=== PATIENT | female | born 1940 | race Caucasian/White ===

== ENCOUNTER 2021-09-23 16:26 | Emergency (ER) | payer MEDICARE, BC ==
[~2021-09-23] VITALS: Ht 154.9 cm; Wt 69.8 kg
[~2021-09-23 16:26] MED LIST: ADULT LOW DOSE81 MG PO; CALCIUM600 MG PO; LEVOTHYROXINE75 MCG PO; LIPITOR40 MG PO; NEXIUM20 MG PO; VITAMIN D1000 UNI1 PO
[2021-09-23] MEDS ORDERED: OFEV150 MG PO (18:31)
[2021-09-23] MEDS ORDERED: DOXYCYCLINE HY100 MG PO (20:58)
== END 2021-09-23 21:41 | disposition home or self-care (01) ==
LOC: ED 16:26
DX: J40 Bronchitis, not specified as acute or chronic (principal); Z20.822 Contact with and (suspected) exposure to COVID-19; K21.9 Gastro-esophageal reflux disease without esophagitis; Z87.891 Personal history of nicotine dependence; Z79.899 Other long term (current) drug therapy; Z79.82 Long term (current) use of aspirin
CPT/HCPCS: 71046; 87502; 99283-25; A9270; U0003